=== PATIENT | female | born 1970 | race Caucasian/White ===

== ENCOUNTER 2020-10-09 14:25 | Inpatient (IN) ==
[2020-10-09 18:57] LABS: Basophils % 0.1 %; Eosinophils % 0.1 %; Hematocrit 39.2 % (35.3-44.9); Hemoglobin 12.4 g/dL (11.5-15.4); Immature Granulocytes % 0.4 % (0-4); Lymphocytes # 1.3 K/mcL (0.6-4.6); Lymphocytes % 9.2 %; Mean Corpuscular HGB Conc 31.6 g/dL (31.6-35.5); Mean Corpuscular Hemoglobin 26.6 pg (28.0-33.3); Mean Corpuscular Volume 84.1 fL (83.0-100.0); Monocytes # 1.1 K/mcL (0.0-1.3); Monocytes % 7.8 %; Neutrophils # 11.7 K/mcL (1.6-8.9); Platelet Count 213 K/mcL (140-400); Red Blood Count 4.66 M/mcL (3.82-4.97); Red Cell Distribution Width 13.1 % (11.5-14.5); Segmented Neutrophils % 82.4 %; White Blood Count 14.2 K/mcL (4.3-11.1)
[2020-10-09 19:18] LABS: BUN/Creatinine Ratio 10 (6-26); Blood Urea Nitrogen 10 mg/dL (6-20); C-Reactive Protein 247 mg/L (Less than 10); Calcium 9.6 mg/dL (8.6-10.3); Carbon Dioxide 26 mEq/L (23-29); Chloride 95 mEq/L (98-107); Glucose 484 mg/dL (70-105); Osmolality,Calculated 292 (280-300); Potassium 3.7 mEq/L (3.5-5.1); Sodium 131 mEq/L (136-145); eGFR For African Americans > 60 (> 60); eGFR For Non-African Americans 58 (> 60)
[2020-10-09] MEDS ORDERED: Piperacillin/Tazobactam 3.375 GM in 0.9 % Sodium Chloride Mini Bag 100 ML IVPB ONE (20:16)
[2020-10-09] MEDS ORDERED: Vancomycin 1,750 MG/517.5 ML IV.SOLN IVPB ONE (20:16)
[2020-10-09] MEDS ORDERED: Acetaminophen 325 MG TABLET PO PRN (21:07)
[2020-10-09] MEDS ORDERED: Ondansetron ODT 4 MG TAB.RAPDIS SL PRN (21:07)
[2020-10-09] MEDS ORDERED: Naloxone 0.4 MG/ML INJ IVP PRN (21:07)
[2020-10-09] MEDS ORDERED: *HR* Dextrose 50 % in Water (Vial) 50 ML VIAL IVP PRN (21:10)
[2020-10-09] MEDS ORDERED: D5% in Water 1,000 ML IVC PRN (21:10)
[2020-10-09] MEDS ORDERED: Dextrose Gel 15 GM/37.5 ML TUBE PO PRN ×2 (21:10)
[2020-10-09] MEDS: 0.9 % Sodium Chloride 1,000 ML IVC SCH (21:42)
[2020-10-09] MEDS ORDERED: Vancomycin 1,750 MG in 0.9 % Sodium Chloride 250 ML IVPB SCH (22:00)
[2020-10-09] MEDS: Insulin LISPRO 300 UNITS/3 ML VIAL SQ SCH (22:10)
[2020-10-10] MEDS: Piperacillin/Tazobactam 3.375 GM in 0.9 % Sodium Chloride Mini Bag 100 ML IVPB SCH ×3 (03:32→20:44)
[2020-10-10 04:54] LABS: Basophils % 0.2 %; Eosinophils % 0.1 %; Hematocrit 36.6 % (35.3-44.9); Hemoglobin 11.6 g/dL (11.5-15.4); Immature Granulocytes % 0.4 % (0-4); Lymphocytes # 1.3 K/mcL (0.6-4.6); Lymphocytes % 11.5 %; Mean Corpuscular HGB Conc 31.7 g/dL (31.6-35.5); Mean Corpuscular Volume 85.1 fL (83.0-100.0); Monocytes % 8.7 %; Neutrophils # 9.2 K/mcL (1.6-8.9); Platelet Count 176 K/mcL (140-400); Segmented Neutrophils % 79.1 %; White Blood Count 11.6 K/mcL (4.3-11.1)
[2020-10-10 05:07] LABS: INR 1.3; Prothrombin Time 15.1 Seconds (9.4-12.1)
[2020-10-10 05:14] LABS: BUN/Creatinine Ratio 11 (6-26); Blood Urea Nitrogen 12 mg/dL (6-20); Calcium 8.7 mg/dL (8.6-10.3); Carbon Dioxide 25 mEq/L (23-29); Chloride 99 mEq/L (98-107); Glucose 345 mg/dL (70-105); Magnesium 1.7 mg/dL (1.6-2.6); Osmolality,Calculated 289 (280-300); Phosphorous 1.9 mg/dL (2.7-4.5); Potassium 3.5 mEq/L (3.5-5.1); Sodium 133 mEq/L (136-145); eGFR For African Americans > 60 (> 60); eGFR For Non-African Americans 53 (> 60)
[2020-10-10] MEDS: 0.9 % Sodium Chloride 1,000 ML IVC SCH (08:03)
[2020-10-10] MEDS: Insulin LISPRO 300 UNITS/3 ML VIAL SQ SCH ×3 (08:31→18:48)
[2020-10-10] MEDS ORDERED: Vancomycin 1,250 MG/262.5 ML IV.SOLN IVPB SCH (09:00)
[2020-10-10] MEDS ORDERED: Pregabalin 75 MG CAPSULE PO SCH (09:00)
[2020-10-10] MEDS ORDERED: *HR* HYDROmorphone PF 0.5 MG/0.5 ML SYRINGE IVP PRN (16:27)
[2020-10-10] MEDS ORDERED: Ondansetron 4 MG/2 ML VIAL IVP PRN (16:27)
[2020-10-10] MEDS ORDERED: *HR* OxyCODONE Immed Rel 5 MG TABLET PO PRN ×2 (16:27→19:34)
[2020-10-10] MEDS ORDERED: Famotidine 20 MG/2 ML VIAL ONE (16:33)
[2020-10-10] MEDS ORDERED: Lidocaine HCL 4 ML Topical Solution (Laryng-O-Jet Kit Sterile Pak) TP ONE (16:39)
[2020-10-10] MEDS ORDERED: *HR* Succinylcholine 200 MG/10 ML VIAL IVP ONE (16:39)
[2020-10-10] MEDS ORDERED: Lidocaine -MPF 2% 2 ML VIAL ONE (16:39)
[2020-10-10] MEDS ORDERED: *HR* FentaNYL (PF) 100 MCG/2 ML VIAL ONE ×2 (16:40→17:31)
[2020-10-10] MEDS ORDERED: *HR* Propofol 200 MG/20 ML VIAL IVP ONE (16:40)
[2020-10-10] MEDS ORDERED: Lidocaine 1% 20 ML MDV ONE (16:53)
[2020-10-10] MEDS ORDERED: Vancomycin 1,000 MG VIAL ONE (17:04)
[2020-10-10] MEDS ORDERED: Acetaminophen IV 1,000 MG/100 ML INFUS..BTL ONE (18:01)
[2020-10-10 18:27] LABS: ABG Base Excess 3 mEq/L (-2 to 3); ABG HCO3 27 mEq/L (21-27); ABG Oxygen Saturation 96 % (95-98); ABG PCO2 38 mmHg (35-45); ABG PH 7.46 pH Units (7.32-7.45); ABG PO2 77 mmHg (85-104); ABG TCO2 28 mEq/L (20-26)
[2020-10-10] MEDS ORDERED: D5% in Water 1,000 ML IVC PRN (19:34)
[2020-10-10] MEDS ORDERED: Acetaminophen 325 MG TABLET PO PRN (19:34)
[2020-10-10] MEDS ORDERED: *HR* Dextrose 50 % in Water (Vial) 50 ML VIAL IVP PRN (19:34)
[2020-10-10] MEDS ORDERED: Naloxone 0.4 MG/ML INJ IVP PRN (19:34)
[2020-10-10] MEDS ORDERED: Dextrose Gel 15 GM/37.5 ML TUBE PO PRN ×2 (19:34)
[2020-10-10] MEDS ORDERED: Ondansetron ODT 4 MG TAB.RAPDIS SL PRN (19:34)
[2020-10-10] MEDS: Pregabalin 75 MG CAPSULE PO SCH (20:39)
[2020-10-10] MEDS: Famotidine 20 MG TABLET PO SCH (20:39)
[2020-10-10] MEDS: Vancomycin 1,250 MG/262.5 ML IV.SOLN IVPB SCH (20:45)
[2020-10-11 01:16] LABS: ABG Base Excess 0 mEq/L (-2 to 3); ABG HCO3 24 mEq/L (21-27); ABG Oxygen Saturation 99 % (95-98); ABG PCO2 38 mmHg (35-45); ABG PH 7.41 pH Units (7.32-7.45); ABG PO2 113 mmHg (85-104); ABG TCO2 25 mEq/L (20-26)
[2020-10-11] MEDS: Piperacillin/Tazobactam 3.375 GM in 0.9 % Sodium Chloride Mini Bag 100 ML IVPB SCH ×3 (04:18→22:25)
[2020-10-11] MEDS: Pregabalin 75 MG CAPSULE PO SCH ×2 (08:18→22:24)
[2020-10-11] MEDS: hydroCHLOROthiazide 25 MG TABLET PO SCH (08:19)
[2020-10-11] MEDS: Famotidine 20 MG TABLET PO SCH (08:19)
[2020-10-11] MEDS: Insulin LISPRO 300 UNITS/3 ML VIAL SQ SCH ×4 (08:24→22:24)
[2020-10-11] MEDS: Vancomycin 1,250 MG/262.5 ML IV.SOLN IVPB SCH (08:36)
[2020-10-11] MEDS ORDERED: lisinopriL 20 MG TABLET PO SCH (09:00)
[2020-10-11 11:10] LABS: Basophils % 0.2 %; Eosinophils # 0.1 K/mcL (0.0-0.6); Eosinophils % 1.3 %; Hemoglobin 10.3 g/dL (11.5-15.4); Immature Granulocytes % 0.2 % (0-4); Lymphocytes # 0.9 K/mcL (0.6-4.6); Lymphocytes % 18.2 %; Mean Corpuscular HGB Conc 31.2 g/dL (31.6-35.5); Mean Corpuscular Hemoglobin 27.1 pg (28.0-33.3); Mean Corpuscular Volume 86.8 fL (83.0-100.0); Mean Platelet Volume 11.3 fL (9.4-12.4); Monocytes # 0.6 K/mcL (0.0-1.3); Monocytes % 12.7 %; Platelet Count 156 K/mcL (140-400); Red Cell Distribution Width 13.2 % (11.5-14.5); Segmented Neutrophils % 67.4 %
[2020-10-11 11:11] LABS: Neutrophils # 3.2 K/mcL (1.6-8.9); White Blood Count 4.7 K/mcL (4.3-11.1)
[2020-10-11 11:32] LABS: Calcium 8.3 mg/dL (8.6-10.3); Potassium 3.9 mEq/L (3.5-5.1)
[2020-10-11 11:44] LABS: Estimated Average Glucose 240 mg/dl
[2020-10-11] MEDS ORDERED: 0.9 % Sodium Chloride 1,000 ML IVC SCH (13:30)
[2020-10-11] MEDS ORDERED: Insulin DETEMIR 100 UNIT/ML X5UNITS SQ ONE (14:00)
[2020-10-11] MEDS ORDERED: Melatonin 3 MG TABLET PO PRN (23:12)
[2020-10-12 02:07] LABS: Basophils % 0.3 %; Eosinophils # 0.2 K/mcL (0.0-0.6); Eosinophils % 2.6 %; Hematocrit 33.9 % (35.3-44.9); Hemoglobin 10.5 g/dL (11.5-15.4); Immature Granulocytes % 0.3 % (0-4); Lymphocytes # 1.1 K/mcL (0.6-4.6); Lymphocytes % 17.8 %; Mean Corpuscular Volume 87.1 fL (83.0-100.0); Monocytes # 0.8 K/mcL (0.0-1.3); Monocytes % 13.6 %; Neutrophils # 4.1 K/mcL (1.6-8.9); Platelet Count 178 K/mcL (140-400); Red Blood Count 3.89 M/mcL (3.82-4.97); Red Cell Distribution Width 13.1 % (11.5-14.5); Segmented Neutrophils % 65.4 %; White Blood Count 6.2 K/mcL (4.3-11.1)
[2020-10-12 02:26] LABS: Calcium 8.4 mg/dL (8.6-10.3); Potassium 3.8 mEq/L (3.5-5.1)
[2020-10-12] MEDS: Piperacillin/Tazobactam 3.375 GM in 0.9 % Sodium Chloride Mini Bag 100 ML IVPB SCH ×3 (04:32→19:57)
[2020-10-12] MEDS: hydroCHLOROthiazide 25 MG TABLET PO SCH (09:32)
[2020-10-12] MEDS: Famotidine 20 MG TABLET PO SCH (09:32)
[2020-10-12] MEDS: Pregabalin 75 MG CAPSULE PO SCH ×2 (09:32→20:05)
[2020-10-12] MEDS: Insulin LISPRO 300 UNITS/3 ML VIAL SQ SCH ×4 (10:15→20:05)
[2020-10-12] MEDS: 0.9 % Sodium Chloride 1,000 ML IVC SCH ×2 (10:15→17:59)
[2020-10-12] MEDS: Vancomycin 1,250 MG/262.5 ML IV.SOLN IVPB SCH (13:47)
[2020-10-12] MEDS ORDERED: Insulin DETEMIR 100 UNIT/ML X5UNITS SQ ONE (16:51)
[2020-10-12] MEDS ORDERED: Insulin DETEMIR 100 UNIT/ML X5UNITS SQ SCH (21:00)
[2020-10-13] MEDS ORDERED: Benzonatate 100 MG CAPSULE PO PRN (02:03)
[2020-10-13 02:25] LABS: Basophils % 0.1 %; Eosinophils # 0.3 K/mcL (0.0-0.6); Eosinophils % 3.9 %; Hematocrit 33.1 % (35.3-44.9); Hemoglobin 10.2 g/dL (11.5-15.4); Immature Granulocytes % 0.9 % (0-4); Lymphocytes # 1.5 K/mcL (0.6-4.6); Lymphocytes % 21.8 %; Mean Corpuscular HGB Conc 30.8 g/dL (31.6-35.5); Mean Corpuscular Hemoglobin 27.1 pg (28.0-33.3); Mean Corpuscular Volume 87.8 fL (83.0-100.0); Mean Platelet Volume 11.5 fL (9.4-12.4); Monocytes # 0.6 K/mcL (0.0-1.3); Monocytes % 9.1 %; Neutrophils # 4.4 K/mcL (1.6-8.9); Platelet Count 192 K/mcL (140-400); Red Blood Count 3.77 M/mcL (3.82-4.97); Red Cell Distribution Width 13.2 % (11.5-14.5); Segmented Neutrophils % 64.2 %; White Blood Count 6.8 K/mcL (4.3-11.1)
[2020-10-13 02:43] LABS: Calcium 8.9 mg/dL (8.6-10.3); Potassium 4.3 mEq/L (3.5-5.1)
[2020-10-13] MEDS: Piperacillin/Tazobactam 3.375 GM in 0.9 % Sodium Chloride Mini Bag 100 ML IVPB SCH ×3 (03:12→20:38)
[2020-10-13] MEDS: Insulin LISPRO 300 UNITS/3 ML VIAL SQ SCH ×4 (08:25→20:43)
[2020-10-13] MEDS: hydroCHLOROthiazide 25 MG TABLET PO SCH (08:26)
[2020-10-13] MEDS: Famotidine 20 MG TABLET PO SCH (08:27)
[2020-10-13] MEDS: Pregabalin 75 MG CAPSULE PO SCH ×2 (08:27→20:39)
[2020-10-13] MEDS: Vancomycin 1,250 MG/262.5 ML IV.SOLN IVPB SCH (11:58)
[2020-10-13] MEDS: 0.9 % Sodium Chloride 1,000 ML IVC SCH ×2 (20:42)
[2020-10-13] MEDS ORDERED: Insulin DETEMIR 100 UNIT/ML X5UNITS SQ SCH (21:00)
[2020-10-14 01:40] LABS: Basophils % 0.3 %; Eosinophils # 0.2 K/mcL (0.0-0.6); Hematocrit 33.4 % (35.3-44.9); Hemoglobin 10.4 g/dL (11.5-15.4); Immature Granulocytes % 1.1 % (0-4); Lymphocytes # 1.4 K/mcL (0.6-4.6); Lymphocytes % 17.5 %; Mean Corpuscular HGB Conc 31.1 g/dL (31.6-35.5); Mean Corpuscular Hemoglobin 26.9 pg (28.0-33.3); Mean Corpuscular Volume 86.5 fL (83.0-100.0); Mean Platelet Volume 11.7 fL (9.4-12.4); Monocytes # 0.6 K/mcL (0.0-1.3); Monocytes % 7.4 %; Neutrophils # 5.6 K/mcL (1.6-8.9); Platelet Count 245 K/mcL (140-400); Red Blood Count 3.86 M/mcL (3.82-4.97); Red Cell Distribution Width 13.3 % (11.5-14.5); Segmented Neutrophils % 70.7 %; White Blood Count 7.9 K/mcL (4.3-11.1)
[2020-10-14 01:59] LABS: Potassium 4.3 mEq/L (3.5-5.1)
[2020-10-14] MEDS: Piperacillin/Tazobactam 3.375 GM in 0.9 % Sodium Chloride Mini Bag 100 ML IVPB SCH ×3 (04:19→19:47)
[2020-10-14] MEDS: 0.9 % Sodium Chloride 1,000 ML IVC SCH ×3 (04:25→18:29)
[2020-10-14] MEDS: Insulin LISPRO 300 UNITS/3 ML VIAL SQ SCH (08:23)
[2020-10-14] MEDS: hydroCHLOROthiazide 25 MG TABLET PO SCH (08:40)
[2020-10-14] MEDS: Pregabalin 75 MG CAPSULE PO SCH ×2 (08:41→20:11)
[2020-10-14] MEDS: Famotidine 20 MG TABLET PO SCH (08:41)
[2020-10-14] MEDS ORDERED: Insulin LISPRO 300 UNITS/3 ML VIAL SQ SCH ×3 (11:30→21:00)
[2020-10-14] MEDS: Vancomycin 1,250 MG/262.5 ML IV.SOLN IVPB SCH (11:30)
[2020-10-14] MEDS ORDERED: Bupivacaine-MPF 0.25% 10 ML VIAL ONE (16:44)
[2020-10-14] MEDS ORDERED: Lidocaine/EPI 1:100k 1% 20 ML VIAL ONE (16:44)
[2020-10-14] MEDS ORDERED: Bupivacaine/EPI 1:200k 0.25% 50 ML VIAL ONE (16:44)
[2020-10-14] MEDS ORDERED: Lidocaine -MPF 2% 2 ML VIAL ONE (17:01)
[2020-10-14] MEDS ORDERED: *HR* FentaNYL (PF) 100 MCG/2 ML VIAL ONE (17:16)
[2020-10-14] MEDS ORDERED: Ondansetron 4 MG/2 ML VIAL ONE (17:25)
[2020-10-14] MEDS ORDERED: Dexamethasone 4 MG/ML VIAL ONE (17:25)
[2020-10-14] MEDS ORDERED: Acetaminophen 325 MG TABLET PO PRN (18:07)
[2020-10-14] MEDS ORDERED: Ondansetron ODT 4 MG TAB.RAPDIS SL PRN (18:07)
[2020-10-14] MEDS ORDERED: Dextrose Gel 15 GM/37.5 ML TUBE PO PRN ×2 (18:07)
[2020-10-14] MEDS ORDERED: *HR* Dextrose 50 % in Water (Vial) 50 ML VIAL IVP PRN (18:07)
[2020-10-14] MEDS ORDERED: D5% in Water 1,000 ML IVC PRN (18:07)
[2020-10-14] MEDS ORDERED: Melatonin 3 MG TABLET PO PRN (18:07)
[2020-10-14] MEDS ORDERED: Benzonatate 100 MG CAPSULE PO PRN (18:07)
[2020-10-14] MEDS ORDERED: Naloxone 0.4 MG/ML INJ IVP PRN (18:07)
[2020-10-14] MEDS ORDERED: Insulin DETEMIR 100 UNIT/ML X5UNITS SQ SCH (21:00)
[2020-10-15 03:32] LABS: Calcium 8.5 mg/dL (8.6-10.3); Potassium 5.2 mEq/L (3.5-5.1)
[2020-10-15] MEDS: Piperacillin/Tazobactam 3.375 GM in 0.9 % Sodium Chloride Mini Bag 100 ML IVPB SCH ×2 (03:58→11:59)
[2020-10-15] MEDS: 0.9 % Sodium Chloride 1,000 ML IVC SCH (03:58)
[2020-10-15] MEDS ORDERED: Famotidine 20 MG TABLET PO SCH (09:00)
[2020-10-15] MEDS ORDERED: hydroCHLOROthiazide 25 MG TABLET PO SCH (09:00)
[2020-10-15] MEDS: Pregabalin 75 MG CAPSULE PO SCH (09:06)
[2020-10-15] MEDS: Insulin LISPRO 300 UNITS/3 ML VIAL SQ SCH ×2 (09:12→12:00)
[2020-10-15] MEDS ORDERED: Vancomycin 1,250 MG/262.5 ML IV.SOLN IVPB SCH (12:00)
[2020-10-15 14:39] VITALS: BP 145/82
== END 2020-10-15 17:23 | disposition home or self-care (01) | DRG 854 ==
LOC: EMEROOARM 14:25 → 3NENU 14:25 → SUATTDRO 20:41 → 3NENU 21:06 → UNDODISIN 10-15 16:23
PROVIDERS: ADMIT Student in an Organized Health Care Education/Training Program; ATTEND Internal Medicine